=== PATIENT | female | born 1950 | race Caucasian/White ===

== ENCOUNTER → 2016-05-04 | Outpatient (CLI) | payer MEDICARE ==
[~2016-05-04] MED LIST: ABILIFY; ABILIFY 15MG TA15 MG PO; ALBUTEROL0.09 MG/A1 IH; ALBUTEROL0.83 MG/ML IH; AMOXICILLIN 50500 MG PO; BENADRYL; BENZTROPINE1 MG PO; CEFTIN250 MG PO; CELEXA; CELEXA 20MG20 MG/TAB PO; FLONASE NASAL S16 GM NS; HYDROCODONE/APAP; LAMICTAL; LAMICTAL PO; LAMICTAL150 MG PO; LEVAQUIN 750MG750 M1 PO; MASON NATURAL2000 IU PO; MIRTAZAPINE7.5 MG PO; OMNICEF 300MG300 MG PO; OSCAL 500 TAB500 MG PO; PAXIL PO; PERCOCET 5/321 UDTAB PO; PHENERGAN W/CO120 ML PO; SEROQUEL; SEROQUEL PO; SPIREVA; VENTOLIN0.09 MG IH; VESICARE 5MG5 MG PO; WELLBUTRIN XL300 M1 PO; ZOLOFT
== END ==
LOC: MC.RAD 08:59
DX: Z12.31 Encounter for screening mammogram for malignant neoplasm of breast (principal)

== ENCOUNTER → 2016-06-22 | Outpatient (CLI) | payer MEDICARE | LOC: BHSO 09:51 | DX: F31.81 Bipolar II disorder (principal) ==

== ENCOUNTER → 2016-09-15 | Outpatient (CLI) | payer MEDICARE | LOC: BHSO 14:07 | DX: F31.74 Bipolar disorder, in full remission, most recent episode manic (principal) ==

== ENCOUNTER 2016-10-14 14:08 | Observation (INO) | payer MEDICARE ==
[~2016-10-14] VITALS: Ht 165.1 cm; Wt 55.5 kg
[2016-10-14] VITALS (7 sets, daily range): BP systolic 120–148; BP diastolic 70–79; PULSE 70–104; TEMP 97.1–98.5
[~2016-10-14 14:08] MED LIST changes: -LAMICTAL150 MG PO; -MASON NATURAL2000 IU PO; -OSCAL 500 TAB500 MG PO; -VESICARE 5MG5 MG PO; -WELLBUTRIN XL300 M1 PO
[2016-10-14] MEDS ORDERED: LAMICTAL150 MG PO (15:46)
[2016-10-14] MEDS ORDERED: WELLBUTRIN XL300 M1 PO (15:46)
[2016-10-14] MEDS ORDERED: VESICARE 5MG5 MG PO (15:47)
[2016-10-14] MEDS ORDERED: OSCAL 500 TAB500 MG PO (15:47)
[2016-10-14] MEDS ORDERED: MASON NATURAL2000 IU PO (15:48)
[2016-10-15 01:07] VITALS: BP 131/75; PULSE 82; TEMP 98.5
[2016-10-15 05:45] VITALS: BP 104/71; PULSE 57; TEMP 97.9
== END 2016-10-15 08:20 | disposition home or self-care (01) ==
LOC: SDCO 14:08 → SURG 17:02 → SDCO 17:30 → SURG 10-15 08:20
DX: N20.1 Calculus of ureter (principal); J44.9 Chronic obstructive pulmonary disease, unspecified; F32.9 Major depressive disorder, single episode, unspecified; Z90.710 Acquired absence of both cervix and uterus; Z80.52 Family history of malignant neoplasm of bladder; Z80.3 Family history of malignant neoplasm of breast; Z80.0 Family history of malignant neoplasm of digestive organs
CPT/HCPCS: C1769; C2617; G0378; J0690; J1100; J1885; J2405; J2704; J3010; J7120; Q9967

== ENCOUNTER → 2016-10-14 | Outpatient (CLI) | payer MEDICARE | LOC: COL.RAD 11:09 | DX: N20.2 Calculus of kidney with calculus of ureter (principal) ==

== ENCOUNTER → 2016-11-15 | Outpatient (CLI) | payer MEDICARE ==
[~2016-11-15] MED LIST changes: +LAMICTAL150 MG PO; +MASON NATURAL2000 IU PO; +OSCAL 500 TAB500 MG PO; +VESICARE 5MG5 MG PO; +WELLBUTRIN XL300 M1 PO
== END ==
LOC: BHSO 10:07
DX: F31.73 Bipolar disorder, in partial remission, most recent episode manic (principal)

== ENCOUNTER → 2017-03-08 | Outpatient (CLI) | payer MEDICARE | LOC: BHSO 09:51 | DX: F31.73 Bipolar disorder, in partial remission, most recent episode manic (principal) ==

== ENCOUNTER → 2017-04-06 | Outpatient (CLI) | payer MEDICARE | LOC: COL.VAS 08:30 | DX: I08.3 Combined rheumatic disorders of mitral, aortic and tricuspid valves (principal) ==

== ENCOUNTER → 2017-04-08 | Outpatient (CLI) | payer MEDICARE ==
[~2017-04-08] MED LIST changes: +DETROL LA4 PO; +ZYPREXA 5MG5 MG PO
== END ==
LOC: COL.RAD 07:30
DX: I67.82 Cerebral ischemia (principal); J32.0 Chronic maxillary sinusitis

== ENCOUNTER 2017-04-11 13:39 | Emergency (ER) | payer MEDICARE ==
[~2017-04-11] VITALS: Ht 167.6 cm; Wt 52.7 kg
[~2017-04-11 13:39] MED LIST changes: -DETROL LA4 PO; -ZYPREXA 5MG5 MG PO
[2017-04-11 13:42] VITALS: BP 141/65; TEMP 98.3
[2017-04-11] MEDS ORDERED: ZYPREXA 5MG5 MG PO (14:54)
[2017-04-11] MEDS ORDERED: DETROL LA4 PO (14:54)
[2017-04-11 15:04] VITALS: PULSE 79
== END 2017-04-11 15:05 | disposition home or self-care (01) ==
LOC: COL.ER 13:39
DX: R20.2 Paresthesia of skin (principal); F41.9 Anxiety disorder, unspecified; J44.9 Chronic obstructive pulmonary disease, unspecified; F31.9 Bipolar disorder, unspecified; F43.10 Post-traumatic stress disorder, unspecified; F17.210 Nicotine dependence, cigarettes, uncomplicated; Z86.73 Personal history of transient ischemic attack (TIA), and cerebral infarction without residual deficits

== ENCOUNTER → 2017-04-11 | Outpatient (CLI) | payer MEDICARE | LOC: COL.RAD 14:00 | DX: J43.9 Emphysema, unspecified (principal); R91.8 Other nonspecific abnormal finding of lung field; J98.4 Other disorders of lung; M41.85 Other forms of scoliosis, thoracolumbar region; G60.0 Hereditary motor and sensory neuropathy; M54.12 Radiculopathy, cervical region | CPT/HCPCS: Q9967 ==

== ENCOUNTER 2017-04-22 08:15 | Outpatient (RCR) | payer MEDICARE ==
[~2017-04-22 08:15] MED LIST changes: +DETROL LA4 PO; +ZYPREXA 5MG5 MG PO
== END 2017-05-16 | disposition home or self-care (01) ==
LOC: WSPT
DX: G62.9 Polyneuropathy, unspecified (principal)
CPT/HCPCS: G8978-GP; G8979-GP; G8980-GP; G8987-GO; G8988-GO

== ENCOUNTER → 2017-05-26 | Outpatient (CLI) | payer MEDICARE | LOC: BHSO 09:30 | DX: F41.1 Generalized anxiety disorder (principal) | CPT/HCPCS: G0463 ==

== ENCOUNTER → 2017-11-25 | Outpatient (CLI) | payer MEDICARE, OTHER ==
[~2017-11-25] MED LIST changes: +ASPIRIN 32325 MG/TAB PO; +INCRUSE EL62.5 MCG/A IH; +PLAVIX 75MG TAB75 MG PO; +PREDNISONE20 MG PO; +ZITHROMAX500 M2 PO
== END ==
LOC: BHSO 15:01
DX: F31.81 Bipolar II disorder (principal)
CPT/HCPCS: G0463

== ENCOUNTER 2017-12-01 05:26 | Emergency (ER) | payer MEDICARE ==
[~2017-12-01] VITALS: Ht 152.5 cm; Wt 54.5 kg
[2017-12-01 05:33] VITALS: TEMP 98
[2017-12-01 05:59] LABS: BASO % 0.7 % (0.0-2.0); EOS # 0.2 (0.0-0.7); EOS % 2.6 % (0-4.0); GRAN # 4.3 (1.4-6.5); GRAN % 70.2 % (42.2-75.2); HEMOGLOBIN 11.3 g/dl (12.5-16.0); LYMPH # 1.1 (1.2-3.4); MEAN CELL VOLUME 95 fl (80.0-100.0); MEAN CORPUSCULAR HEMOGLOBIN 32 pg (27.0-31.0); MEAN CORPUSCULAR HGB CONC 33 g/dl (33.0-37.0); MEAN PLATELET VOLUME 9.5 fl (7.4-10.4); MONO # 0.5 (0.1-0.6); MONO % 8.2 % (1.7-9.3); PLATELET COUNT 220 K/mm3 (130-400); RED BLOOD COUNT 3.58 M/mm3 (4.10-5.30); REDCELL DISTRIBUTION WIDTH-CV 14.8 % (11.5-14.5)
[2017-12-01 06:09] LABS: ALBUMIN 3.8 gm/dL (3.5-5.0); BILIRUBIN,TOTAL 0.4 mg/dL (0.0-1.0); CALCIUM 9.1 mg/dL (8.4-10.2); CREATININE, serum 0.72 mg/dL (0.52-1.25); INR 0.9 (0.8-3.0); POTASSIUM 3.7 mmol/L (3.4-5.0); PROTHROMBIN TIME 10.2 SECONDS (9.7-12.8); TOTAL PROTEIN 6.6 gm/dL (6.4-8.2)
[2017-12-01] MEDS ORDERED: MULTIPLE VITAMI1 CAP PO (07:03)
[2017-12-01 08:38] VITALS: BP 129/89; PULSE 77
== END 2017-12-01 08:40 | disposition home or self-care (01) ==
LOC: COL.ER 05:26
PROVIDERS: Emergency Medicine
DX: H53.2 Diplopia (principal); G62.9 Polyneuropathy, unspecified; J44.9 Chronic obstructive pulmonary disease, unspecified; F31.9 Bipolar disorder, unspecified; F17.210 Nicotine dependence, cigarettes, uncomplicated; Z79.82 Long term (current) use of aspirin; Z86.73 Personal history of transient ischemic attack (TIA), and cerebral infarction without residual deficits; Z98.890 Other specified postprocedural states
CPT/HCPCS: J7030

== ENCOUNTER 2017-12-29 09:08 | Day surgery (SDC) | payer MEDICARE ==
[~2017-12-29] VITALS: Ht 167.6 cm; Wt 55.0 kg
[~2017-12-29 09:08] MED LIST changes: +MULTIPLE VITAMI1 CAP PO
[2017-12-29] MEDS ORDERED: ZYPREXA2.5 MG PO (09:38)
[2017-12-29] MEDS ORDERED: IPRATROPIUM BROM3 M1 IH (09:42)
[2017-12-29] MEDS ORDERED: [UNRECOGNIZED DRUG - OTHER] IH (09:47)
[2017-12-29 09:56] VITALS: BP 140/67; PULSE 74; TEMP 98.5
[2017-12-29 11:20] VITALS: BP 151/94; PULSE 73; TEMP 97.6
== END 2017-12-29 11:28 | disposition home or self-care (01) ==
LOC: COL.CAR 09:08
DX: R55 Syncope and collapse (principal); J44.9 Chronic obstructive pulmonary disease, unspecified; F31.9 Bipolar disorder, unspecified; M81.0 Age-related osteoporosis without current pathological fracture; N32.81 Overactive bladder; F17.210 Nicotine dependence, cigarettes, uncomplicated; R60.0 Localized edema; H35.3230 Exudative age-related macular degeneration, bilateral, stage unspecified; D64.9 Anemia, unspecified; M41.9 Scoliosis, unspecified; Z90.710 Acquired absence of both cervix and uterus; Z79.82 Long term (current) use of aspirin; Z79.02 Long term (current) use of antithrombotics/antiplatelets; Z86.73 Personal history of transient ischemic attack (TIA), and cerebral infarction without residual deficits

== ENCOUNTER 2018-05-11 08:47 | Emergency (ER) | payer MEDICARE ==
[~2018-05-11] VITALS: Ht 167.6 cm; Wt 55.0 kg
[~2018-05-11 08:47] MED LIST changes: +IPRATROPIUM BROM3 M1 IH; +ZYPREXA2.5 MG PO; +[UNRECOGNIZED DRUG - OTHER] IH
[2018-05-11 08:49] VITALS: TEMP 97.7
[2018-05-11 09:17] LABS: BASO # 0.1 (0.0-0.2); BASO % 0.8 % (0.0-2.0); EOS # 0.1 (0.0-0.7); EOS % 1.2 % (0-4.0); GRAN % 69.3 % (42.2-75.2); HEMATOCRIT 38.6 % (37.0-47.0); HEMOGLOBIN 12.8 g/dl (12.5-16.0); LYMPH # 1.7 (1.2-3.4); LYMPH % 19.3 % (20.0-51.0); MEAN CELL VOLUME 94 fl (80.0-100.0); MEAN CORPUSCULAR HEMOGLOBIN 31 pg (27.0-31.0); MEAN CORPUSCULAR HGB CONC 33 g/dl (33.0-37.0); MEAN PLATELET VOLUME 9.3 fl (7.4-10.4); MONO # 0.8 (0.1-0.6); MONO % 8.9 % (1.7-9.3); PLATELET COUNT 321 K/mm3 (130-400); REDCELL DISTRIBUTION WIDTH-CV 13.5 % (11.5-14.5)
[2018-05-11 09:21] LABS: PARTIAL THROMBOPLASTIN TIME 28.7 SECONDS (26.0-37.0)
[2018-05-11 09:33] LABS: ALANINE AMINOTRANSFERASE 24 U/L (9-52); ALBUMIN 4.2 gm/dL (3.5-5.0); ALKALINE PHOSPHATASE 66 U/L (50-136); ANION GAP 5 mmol/L (7-16); AST,SGOT 46 U/L (15-37); BILIRUBIN,TOTAL 0.8 mg/dL (0.0-1.0); BLOOD UREA NITROGEN 16 mg/dL (7-17); CALCIUM 9.7 mg/dL (8.4-10.2); CARBON DIOXIDE 30 mmol/L (22-30); CHLORIDE 102 mmol/L (98-107); CREATININE, serum 0.79 mg/dL (0.52-1.25); GLUCOSE 86 mg/dL (74-106); POTASSIUM 3.8 mmol/L (3.4-5.0); SODIUM 138 mmol/L (137-145); TOTAL PROTEIN 6.8 gm/dL (6.4-8.2)
[2018-05-11 09:35] LABS: INR 0.9 (0.8-3.0)
[2018-05-11 09:41] LABS: COLLECTION METHOD CLEAN CATCH
[2018-05-11 09:46] LABS: PH 7 (5-8); SQUAMOUS EPITHELIAL 0-2 /hpf; URINE APPEARANCE Clear; URINE BACTERIA None Seen /hpf; URINE BILIRUBIN Negative (NEGATIVE); URINE BLOOD Negative (NEGATIVE); URINE COLOR Straw; URINE GLUCOSE Negative (NEGATIVE); URINE KETONE Negative (NEGATIVE); URINE LEUKOCYTE ESTERASE Negative (NEGATIVE); URINE NITRATE Negative (NEGATIVE); URINE PROTEIN(semi-quant) Negative (NEGATIVE); URINE RBC 0-2 /hpf; URINE UROBILINOGEN Negative (NEGATIVE)
[2018-05-11 09:46] LABS: TROPONIN-I < 0.012 ng/mL (0.000-0.034)
[2018-05-11] MEDS ORDERED: ANTIVERT 25MG25 MG PO (12:20)
[2018-05-11] MEDS ORDERED: ZOFRAN ODT4 MG PO (12:20)
[2018-05-11 12:35] VITALS: BP 133/76; PULSE 71
== END 2018-05-11 12:38 | disposition home or self-care (01) ==
LOC: COL.ER 08:47
PROVIDERS: Emergency Medicine
DX: R42 Dizziness and giddiness (principal); F17.210 Nicotine dependence, cigarettes, uncomplicated; J44.9 Chronic obstructive pulmonary disease, unspecified; F31.9 Bipolar disorder, unspecified; Z86.73 Personal history of transient ischemic attack (TIA), and cerebral infarction without residual deficits; Z79.82 Long term (current) use of aspirin; Z79.02 Long term (current) use of antithrombotics/antiplatelets

== ENCOUNTER → 2018-06-01 | Outpatient (CLI) | payer MEDICARE ==
[~2018-06-01] MED LIST changes: +ANTIVERT 25MG25 MG PO; +ZOFRAN ODT4 MG PO
== END ==
LOC: BHSO 15:33
DX: F31.81 Bipolar II disorder (principal)
CPT/HCPCS: G0463

== ENCOUNTER 2018-06-08 08:17 | Emergency (ER) | payer MEDICARE ==
[~2018-06-08] VITALS: Ht 167.6 cm; Wt 54.5 kg
[2018-06-08 08:18] VITALS: TEMP 97.1
[2018-06-08 08:36] LABS: BASO % 0.7 % (0.0-2.0); EOS % 0.5 % (0-4.0); GRAN # 4.4 (1.4-6.5); GRAN % 80.1 % (42.2-75.2); HEMATOCRIT 41.4 % (37.0-47.0); HEMOGLOBIN 13.6 g/dl (12.5-16.0); LYMPH # 0.7 (1.2-3.4); MEAN CELL VOLUME 96 fl (80.0-100.0); MEAN CORPUSCULAR HEMOGLOBIN 31 pg (27.0-31.0); MEAN CORPUSCULAR HGB CONC 33 g/dl (33.0-37.0); MEAN PLATELET VOLUME 8.7 fl (7.4-10.4); MONO # 0.3 (0.1-0.6); MONO % 5.3 % (1.7-9.3); PLATELET COUNT 339 K/mm3 (130-400); RED BLOOD COUNT 4.33 M/mm3 (4.10-5.30); REDCELL DISTRIBUTION WIDTH-CV 13.6 % (11.5-14.5)
[2018-06-08 08:50] LABS: ALANINE AMINOTRANSFERASE 28 U/L (9-52); ALBUMIN 4.1 gm/dL (3.5-5.0); ALKALINE PHOSPHATASE 80 U/L (50-136); ANION GAP 8 mmol/L (7-16); AST,SGOT 27 U/L (15-37); BILIRUBIN,TOTAL 0.7 mg/dL (0.0-1.0); BLOOD UREA NITROGEN 13 mg/dL (7-17); CALCIUM 9.5 mg/dL (8.4-10.2); CARBON DIOXIDE 28 mmol/L (22-30); CHLORIDE 103 mmol/L (98-107); CREATININE, serum 0.57 mg/dL (0.52-1.25); GLUCOSE 108 mg/dL (74-106); POTASSIUM 3.7 mmol/L (3.4-5.0); SODIUM 139 mmol/L (137-145); TOTAL PROTEIN 7.2 gm/dL (6.4-8.2)
[2018-06-08 08:55] LABS: ERYTHROCYTE SEDIMENTATION RATE 14 mm/hr (0-30)
[2018-06-08 09:03] LABS: C-REACTIVE PROTEIN < 0.5 mg/dL (0.0-0.9); TROPONIN-I < 0.012 ng/mL (0.000-0.035)
[2018-06-08 11:09] LABS: COLLECTION METHOD CLEAN CATCH
[2018-06-08 11:17] LABS: MUCOUS Present /lpf; PH 7 (5-8); SQUAMOUS EPITHELIAL None Seen /hpf; URINE APPEARANCE Clear; URINE BACTERIA None Seen /hpf; URINE BILIRUBIN Negative (NEGATIVE); URINE BLOOD Negative (NEGATIVE); URINE COLOR Yellow; URINE GLUCOSE Negative (NEGATIVE); URINE KETONE 1+ (NEGATIVE); URINE LEUKOCYTE ESTERASE Negative (NEGATIVE); URINE NITRATE Negative (NEGATIVE); URINE PROTEIN(semi-quant) Negative (NEGATIVE); URINE UROBILINOGEN Negative (NEGATIVE)
[2018-06-08] MEDS ORDERED: PHENERGAN 25 TA25 MG PO (12:48)
[2018-06-08] MEDS ORDERED: ATIVAN 0.50.5 MG/TAB PO (12:48)
[2018-06-08] MEDS ORDERED: ANTIVERT 25MG25 MG PO (12:48)
[2018-06-08 13:21] VITALS: BP 134/82; PULSE 78
== END 2018-06-08 15:06 | disposition home or self-care (01) ==
LOC: COL.ER 08:17
PROVIDERS: Emergency Medicine
DX: R51 Headache (principal); R42 Dizziness and giddiness; F31.9 Bipolar disorder, unspecified; I10 Essential (primary) hypertension; F17.210 Nicotine dependence, cigarettes, uncomplicated; Z90.710 Acquired absence of both cervix and uterus
CPT/HCPCS: J1200; J1885; J2060; J2550; J7030